=== PATIENT | female | born 1995 | race Hispanic/Latino ===

== ENCOUNTER 2021-02-24 01:27 | Inpatient (IN) | payer MEDICAID, OTHER, SELFPAY ==
[2021-02-24 01:45] VITALS: BMI 33.7
[2021-02-24] MEDS ORDERED: Lidocaine 1% (PF) 30 ML VIAL SC PRN (02:30)
[2021-02-24] MEDS ORDERED: Promethazine HCl 25 MG/ML VIAL IM PRN ×2 (02:30→09:21)
[2021-02-24] MEDS ORDERED: hydrALAZINE 20 MG/ML VIAL SLOW IVP PRN ×2 (02:30→14:08)
[2021-02-24] MEDS ORDERED: NS w/ Oxytocin 30 units 500 ML IV SCH ×3 (02:30→06:45)
[2021-02-24] MEDS ORDERED: NS w/ Oxytocin 30 units 500 ML IVPB SCH (02:30)
[2021-02-24] MEDS ORDERED: Misoprostol 200 MCG TAB RC PRN (02:30)
[2021-02-24] MEDS ORDERED: Ibuprofen 800 MG TAB PO PRN (02:30)
[2021-02-24] MEDS ORDERED: Ondansetron PF 4 MG/2 ML Vial IVP PRN ×3 (02:30→14:08)
[2021-02-24] MEDS ORDERED: Butorphanol Tartrate 1 MG/ML VIAL SLOW IVP PRN (02:30)
[2021-02-24] MEDS: Lactated Ringer's 1,000 ML IV SCH (03:00)
[2021-02-24 03:25] LABS: Mean Corpuscular HGB CONC 33.1 g/dL (32.0-36.0); Mean Corpuscular Hemoglobin 26.7 pg (27.0-33.0); Mean Corpuscular Volume 80.8 fl (81.6-98.3); Mean Platelet Volume 10.7 fl (7.4-10.4); Platelet Count 214 10x3/uL (150-450); RBC Distribution Width 13.8 % (11.5-14.5); Red Blood Cell (RBC) Count 4.49 10x6/uL (3.90-5.03); White Blood Cell (WBC) Count 8.8 10x3/uL (3.5-10.5)
[2021-02-24 03:57] LABS: Hep B Surf Ag Non-Reactive S/CO (NonReactive)
[2021-02-24 03:57] LABS: Syphilis Antibody Nonreactive (Nonreactive); Syphilis Antibody Index 0.04 S/CO (<1.00 Non-Reactive)
[2021-02-24 04:06] LABS: HBSAg Index 0.16 S/CO (0-0.99)
[2021-02-24] MEDS ORDERED: Fentanyl 4 mcg/Bup 0.1% Cadd 100 ML ONE (08:04)
[2021-02-24] MEDS ORDERED: Lactated Ringer's 500 ML IV PRN (09:21)
[2021-02-24] MEDS ORDERED: diphenhydrAMINE 50 MG/ML VIAL IVP PRN (09:21)
[2021-02-24] MEDS ORDERED: Acetaminophen 325 MG TAB PO PRN (09:21)
[2021-02-24] MEDS ORDERED: Naloxone HCl 0.4 mg/ml Vial IVP PRN ×2 (09:21)
[2021-02-24] MEDS ORDERED: Hydrocerin (Eucerin) Cream 120 gm Jar TOP PRN (09:27)
[2021-02-24] MEDS ORDERED: ePHEDrine Sulfate 50 MG/10 ML VIAL SLOW IVP PRN (09:28)
[2021-02-24] MEDS ORDERED: Fentanyl 4 mcg/Bupivacaine 0.1% Cassette 100 ML EPIDURAL SCH (09:30)
[2021-02-24] MEDS ORDERED: Communication Order-Pharmacy FS SCH (09:30)
[2021-02-24 13:57] LABS: SARS-CoV-2 PCR by NAA Not Detected (NotDetected)
[2021-02-24] MEDS ORDERED: NS / Oxytocin 40 units/1000ml 1,000 ML IV SCH (14:08)
[2021-02-24] MEDS ORDERED: Milk Of Magnesia 30 ML UDCUP PO PRN (14:08)
[2021-02-24] MEDS ORDERED: Misoprostol 200 MCG TAB VAG PRN (14:08)
[2021-02-24] MEDS ORDERED: Adacel (T-DAP) 0.5 ML SYRINGE IM ONE (14:08)
[2021-02-24] MEDS ORDERED: HYDROcodone/Acetaminophen 5/325 mg Tablet PO PRN ×2 (14:08)
[2021-02-24] MEDS ORDERED: Bisacodyl 10 MG SUPP PR PRN (14:08)
[2021-02-24] MEDS ORDERED: Benzocaine-Menthol 82.5 ML CAN TOP PRN (14:08)
[2021-02-24] MEDS ORDERED: Lanolin Ointment 7 GM TUBE TOP PRN (14:08)
[2021-02-24] MEDS: Ferrous Sulfate 325 MG TAB PO SCH (16:09)
[2021-02-24] MEDS: Ibuprofen 800 MG TAB PO SCH ×2 (16:09→22:00)
[2021-02-24] MEDS: Docusate Calcium (SURFAK) 240 MG CAP PO SCH (22:00)
[2021-02-25] MEDS: Ibuprofen 800 MG TAB PO SCH ×2 (05:24→13:16)
[2021-02-25] MEDS: Ferrous Sulfate 325 MG TAB PO SCH (07:20)
[2021-02-25] MEDS: Lactated Ringer's 1,000 ML IV SCH (07:43)
[2021-02-25] MEDS: Docusate Calcium (SURFAK) 240 MG CAP PO SCH (08:05)
[2021-02-25] MEDS ORDERED: Prenatal Vitamin 1 TAB PO SCH (09:00)
[2021-02-25 11:03] VITALS: BP 114/62; TEMP 98
== END 2021-02-25 18:24 | disposition home or self-care (01) | DRG 807 ==
LOC: CSHLD/OP 01:27 → CSHLD 02:33 → CSHPP 15:45
PROVIDERS: ADMIT Obstetrics & Gynecology; ATTEND Obstetrics & Gynecology
PROC: 10E0XZZ Delivery of Products of Conception, External Approach (ICD-10-PCS; principal; 2021-02-24)
PROC: 0KQM0ZZ Repair Perineum Muscle, Open Approach (ICD-10-PCS; 2021-02-24)
PROC: 10907ZC Drainage of Amniotic Fluid, Therapeutic from Products of Conception, Via Natural or Artificial Opening (ICD-10-PCS; 2021-02-24)
PROC: 10H07YZ Insertion of Other Device into Products of Conception, Via Natural or Artificial Opening (ICD-10-PCS; 2021-02-24)
DX: O70.1 Second degree perineal laceration during delivery (principal); Z37.0 Single live birth; Z3A.39 39 weeks gestation of pregnancy; Z20.822 Contact with and (suspected) exposure to COVID-19
CPT/HCPCS: 36415; 51702; 85027; 86780; 86850; 86900; 86901; 87340; 87635; 99285; J2590; U0003; U0005

== ENCOUNTER 2025-06-04 16:59 | Emergency (ER) | payer OTHER, SELFPAY ==
[2025-06-04 18:03] LABS: Glucose, Urine (Dipstick) Normal (Negative); Leukocyte 25 (Negative); Protein, Urine (Dipstick) Negative (Neg-Trace); Specific Gravity, Urine 1.010 (1.005-1.030)
[2025-06-04 18:25] LABS: Bacteria/HPF Rare-Few HPF (None Seen); CAUTI Indications for Culture Pelvic or flank pain; RBC/HPF 0-3 HPF (0-3); Urine Culture Reflex No No; WBC/HPF 0-3 HPF (0-3)
== END 2025-06-04 18:31 | disposition home or self-care (01) ==
LOC: CSHERS 16:59
DX: O23.11 Infections of bladder in pregnancy, first trimester (principal); N30.00 Acute cystitis without hematuria; Z3A.08 8 weeks gestation of pregnancy
CPT/HCPCS: 81001; 99283